=== PATIENT | female | born 1960 | race Caucasian/White ===

== ENCOUNTER 2020-09-28 13:57 | Outpatient (CLI) | payer OTHER | END 2020-09-28 14:13 | disposition home or self-care (01) | LOC: RAD 13:57 → MRI 14:15 | PROVIDERS: ATTEND Orthopaedic Surgery | DX: S83.242A Other tear of medial meniscus, current injury, left knee, initial encounter (principal); M25.562 Pain in left knee | CPT/HCPCS: 73721 ==

== ENCOUNTER 2020-12-20 13:08 | Outpatient (CLI) | payer OTHER ==
[2021-01-09] MEDS ORDERED: CARAFATE1 GM PO (14:19)
[2021-01-09] MEDS ORDERED: CHILDREN'S ASPI81 MG PO (14:19)
[2021-01-09] MEDS ORDERED: ELIQUIS2.5 MG PO (14:19)
== END 2020-12-20 13:10 | disposition home or self-care (01) ==
LOC: NUCLEAR 13:08
PROVIDERS: ATTEND Orthopaedic Surgery
DX: M81.0 Age-related osteoporosis without current pathological fracture (principal)

== ENCOUNTER 2020-12-20 13:51 | Outpatient (CLI) | payer OTHER ==
[2021-01-09] MEDS ORDERED: CHILDREN'S ASPI81 MG PO (14:19)
[2021-01-09] MEDS ORDERED: ELIQUIS2.5 MG PO (14:19)
[2021-01-09] MEDS ORDERED: CARAFATE1 GM PO (14:19)
== END 2020-12-20 15:34 | disposition home or self-care (01) ==
LOC: OFIC 805 13:51
PROVIDERS: ATTEND Otolaryngology Otology & Neurotology
DX: J35.01 Chronic tonsillitis (principal); J03.80 Acute tonsillitis due to other specified organisms

== ENCOUNTER 2020-12-21 07:54 | Outpatient (CLI) | payer OTHER ==
[2021-01-09] MEDS ORDERED: CHILDREN'S ASPI81 MG PO (14:19)
[2021-01-09] MEDS ORDERED: CARAFATE1 GM PO (14:19)
[2021-01-09] MEDS ORDERED: ELIQUIS2.5 MG PO (14:19)
== END 2020-12-21 08:09 | disposition home or self-care (01) ==
LOC: RAD 07:54
PROVIDERS: ATTEND Internal Medicine Cardiovascular Disease
DX: M25.561 Pain in right knee (principal); M25.562 Pain in left knee; I26.99 Other pulmonary embolism without acute cor pulmonale; D68.61 Antiphospholipid syndrome
CPT/HCPCS: 71275

== ENCOUNTER 2020-12-27 07:27 | Outpatient (CLI) | payer OTHER ==
[2021-01-09] MEDS ORDERED: ELIQUIS2.5 MG PO (14:19)
[2021-01-09] MEDS ORDERED: CHILDREN'S ASPI81 MG PO (14:19)
[2021-01-09] MEDS ORDERED: CARAFATE1 GM PO (14:19)
== END 2020-12-27 07:28 | disposition home or self-care (01) ==
LOC: NUCLEAR 07:27
PROVIDERS: ATTEND Internal Medicine Cardiovascular Disease
DX: I26.99 Other pulmonary embolism without acute cor pulmonale (principal); I82.403 Acute embolism and thrombosis of unspecified deep veins of lower extremity, bilateral; D68.61 Antiphospholipid syndrome

== ENCOUNTER 2020-12-27 09:06 | Outpatient (CLI) | payer OTHER ==
[2021-01-09] MEDS ORDERED: ELIQUIS2.5 MG PO (14:19)
[2021-01-09] MEDS ORDERED: CARAFATE1 GM PO (14:19)
[2021-01-09] MEDS ORDERED: CHILDREN'S ASPI81 MG PO (14:19)
== END 2020-12-27 09:42 | disposition home or self-care (01) ==
LOC: RAD 09:06
PROVIDERS: ATTEND Obstetrics & Gynecology Gynecology
DX: R07.9 Chest pain, unspecified (principal)

== ENCOUNTER 2021-01-02 15:20 | Outpatient (CLI) | payer OTHER ==
[2021-01-09] MEDS ORDERED: CHILDREN'S ASPI81 MG PO (14:19)
[2021-01-09] MEDS ORDERED: CARAFATE1 GM PO (14:19)
[2021-01-09] MEDS ORDERED: ELIQUIS2.5 MG PO (14:19)
== END 2021-01-02 15:30 | disposition home or self-care (01) ==
LOC: RAD 15:20
PROVIDERS: ATTEND Orthopaedic Surgery
DX: M54.5 Low back pain (principal)

== ENCOUNTER → 2021-01-09 08:00 | Outpatient (CLI) | payer OTHER ==
[~2021-01-09 08:00] MED LIST: CARAFATE1 GM PO; CHILDREN'S ASPI81 MG PO; ELIQUIS2.5 MG PO
== END | disposition home or self-care (01) ==
LOC: LAB 08:00 → ADM 11:00 → CIR.AMB 11:00 → EDSTATUS 01-16 11:00
PROVIDERS: ATTEND Obstetrics & Gynecology Gynecology
DX: N39.3 Stress incontinence (female) (male) (principal); Z20.822 Contact with and (suspected) exposure to COVID-19; Z20.828 Contact with and (suspected) exposure to other viral communicable diseases

== ENCOUNTER 2021-01-11 14:06 | Outpatient (CLI) | payer OTHER | END 2021-01-11 14:15 | disposition home or self-care (01) | LOC: RAD 14:06 | PROVIDERS: ATTEND Internal Medicine Rheumatology | DX: M16.0 Bilateral primary osteoarthritis of hip (principal) ==

== ENCOUNTER → 2021-01-31 | Outpatient (CLI) | payer OTHER | END | disposition home or self-care (01) | LOC: RAD 14:33 | PROVIDERS: ATTEND Orthopaedic Surgery Orthopaedic Surgery of the Spine | DX: M54.5 Low back pain (principal) ==

== ENCOUNTER 2021-02-28 10:11 | Outpatient (CLI) | payer OTHER | END 2021-02-28 10:31 | disposition home or self-care (01) | LOC: NUCLEAR 10:11 | PROVIDERS: ATTEND Neuromusculoskeletal Medicine, Sports Medicine | DX: I73.9 Peripheral vascular disease, unspecified (principal) ==

== ENCOUNTER 2021-10-11 13:23 | Outpatient (CLI) | payer OTHER | END 2021-10-11 13:24 | disposition home or self-care (01) | LOC: NUCLEAR 13:23 | PROVIDERS: ATTEND Internal Medicine Hematology & Oncology | DX: D45 Polycythemia vera (principal) ==

== ENCOUNTER 2021-11-14 11:55 | Outpatient (CLI) | payer OTHER | END 2021-11-14 12:07 | disposition home or self-care (01) | LOC: RAD 11:55 | PROVIDERS: ATTEND Orthopaedic Surgery | DX: M25.511 Pain in right shoulder (principal) ==

== ENCOUNTER 2021-11-28 10:04 | Outpatient (CLI) | payer OTHER | END 2021-11-28 10:17 | disposition home or self-care (01) | LOC: SONOGRAMA 10:04 | PROVIDERS: ATTEND Orthopaedic Surgery | DX: M25.511 Pain in right shoulder (principal) ==

== ENCOUNTER 2022-01-15 14:22 | Outpatient (CLI) | payer OTHER | END 2022-01-15 14:35 | disposition home or self-care (01) | LOC: RAD 14:22 | PROVIDERS: ATTEND Obstetrics & Gynecology Gynecology | DX: R07.9 Chest pain, unspecified (principal) ==

== ENCOUNTER → 2022-01-15 14:25 | Outpatient (CLI) | payer OTHER | END | disposition home or self-care (01) | LOC: LAB 14:25 → EKG 14:25 | PROVIDERS: ATTEND Obstetrics & Gynecology Gynecology | DX: I10 Essential (primary) hypertension (principal) ==

== ENCOUNTER 2022-01-31 09:59 | Outpatient (CLI) | payer OTHER | END 2022-01-31 10:29 | disposition home or self-care (01) | LOC: MRI 09:59 | PROVIDERS: ATTEND Internal Medicine Hematology & Oncology | DX: F03.90 Unspecified dementia, unspecified severity, without behavioral disturbance, psychotic disturbance, mood disturbance, and anxiety (principal) | CPT/HCPCS: 70551 ==

== ENCOUNTER 2022-02-05 06:15 | Day surgery (SDC) | payer OTHER ==
[~2022-02-05] VITALS: Ht 152.4 cm; Wt 65.8 kg
[2022-02-05] MEDS ORDERED: ULTRACET PO (10:41)
[2022-02-05] MEDS ORDERED: MACROBID 100 M100 MG PO (10:41)
== END 2022-02-05 12:25 | disposition home or self-care (01) ==
LOC: CIR.AMB 06:15
PROVIDERS: ATTEND Obstetrics & Gynecology Gynecology
DX: N39.3 Stress incontinence (female) (male) (principal); Z86.711 Personal history of pulmonary embolism; Z87.891 Personal history of nicotine dependence; Z79.01 Long term (current) use of anticoagulants; Z20.822 Contact with and (suspected) exposure to COVID-19

== ENCOUNTER 2022-02-18 13:44 | Outpatient (CLI) | payer OTHER ==
[~2022-02-18 13:44] MED LIST changes: +MACROBID 100 M100 MG PO; +ULTRACET PO
== END 2022-02-18 15:05 | disposition home or self-care (01) ==
LOC: RAD 13:44
PROVIDERS: ATTEND Internal Medicine Hematology & Oncology
DX: J20.0 Acute bronchitis due to Mycoplasma pneumoniae (principal)

== ENCOUNTER 2022-05-30 15:18 | Outpatient (CLI) | payer OTHER | END 2022-05-30 15:27 | disposition home or self-care (01) | LOC: RAD 15:18 | PROVIDERS: ATTEND Internal Medicine Pulmonary Disease | DX: R06.02 Shortness of breath (principal); J45.31 Mild persistent asthma with (acute) exacerbation; Z86.718 Personal history of other venous thrombosis and embolism ==

== ENCOUNTER 2023-01-23 07:45 | Outpatient (CLI) | payer OTHER | END 2023-01-23 08:03 | disposition home or self-care (01) | LOC: RAD 07:45 | PROVIDERS: ATTEND Radiology Nuclear Radiology | DX: R10.9 Unspecified abdominal pain (principal); M51.27 Other intervertebral disc displacement, lumbosacral region; M50.10 Cervical disc disorder with radiculopathy, unspecified cervical region | CPT/HCPCS: 72141; 72148 ==

== ENCOUNTER 2023-02-17 11:26 | Outpatient (CLI) | payer OTHER | END 2023-02-17 11:34 | disposition home or self-care (01) | LOC: RAD 11:26 | PROVIDERS: ATTEND Orthopaedic Surgery | DX: M25.572 Pain in left ankle and joints of left foot (principal) ==

== ENCOUNTER 2023-05-26 14:00 | Outpatient (CLI) | payer OTHER | END 2023-05-26 14:35 | disposition home or self-care (01) | LOC: RAD 14:00 | PROVIDERS: ATTEND Radiology Nuclear Radiology | DX: M23.200 Derangement of unspecified lateral meniscus due to old tear or injury, right knee (principal); M23.201 Derangement of unspecified lateral meniscus due to old tear or injury, left knee ==

== ENCOUNTER 2023-11-05 13:23 | Outpatient (CLI) | payer OTHER | END 2023-11-05 13:35 | disposition home or self-care (01) | LOC: RAD 13:23 | PROVIDERS: ATTEND Internal Medicine Rheumatology | DX: M19.90 Unspecified osteoarthritis, unspecified site (principal) ==

== ENCOUNTER 2023-11-21 13:31 | Outpatient (CLI) | payer OTHER | END 2023-11-21 13:32 | disposition home or self-care (01) | LOC: NUCLEAR 13:31 | DX: M81.0 Age-related osteoporosis without current pathological fracture (principal) ==

== ENCOUNTER → 2025-01-24 17:10 | Outpatient (CLI) | payer OTHER ==
[2025-01-24 17:55] LABS: COVID-19 AG NEGATIVE (NEGATIVE)
[2025-01-24 17:56] LABS: INFLUENZA A AG NEGATIVE (NEGATIVE)
[2025-01-24 18:27] LABS: MYCOPLASMA PNEUMONIAE IGM NON REACTIVE (NO REACTIVE)
== END | disposition home or self-care (01) ==
LOC: LAB 17:10
PROVIDERS: ATTEND Internal Medicine Hematology & Oncology
DX: Z20.828 Contact with and (suspected) exposure to other viral communicable diseases (principal); U07.1 COVID-19; Z87.09 Personal history of other diseases of the respiratory system; J20.0 Acute bronchitis due to Mycoplasma pneumoniae; J11.1 Influenza due to unidentified influenza virus with other respiratory manifestations

== ENCOUNTER 2025-01-25 10:11 | Inpatient (IN) | payer OTHER ==
[2025-01-25 11:46] LABS: ERYTHROCYTE SEDIMENTATION RATE 23 mm/hr (0-30)
[2025-01-25 11:49] LABS: HEMATOCRIT 43.8 % (34.1-44.9); HEMOGLOBIN 14.5 g/dL (11.2-15.7); MEAN CORPUSCULAR HEMOGLOBIN 30.3 pg (25.6-32.2); RED BLOOD COUNT 4.79 M/uL (3.93-5.22)
[2025-01-25 11:51] LABS: EOS % 2.2 % (0.7-7.0); LYMPH % 22.3 % (19.3-53.1); MONO % 7.8 % (4.7-12.5); PLATELET COUNT 261 K/uL (163-369); RED CELL DISTRIBUTION WIDTH 12.8 % (11.6-14.4)
[2025-01-25 11:52] LABS: BASO % 0.4 % (0.1-1.2)
[2025-01-25 11:53] LABS: EOS # 0.22 (0.04-0.54); LYMPH # 2.18 (1.18-3.74); MONO # 0.76 (0.24-0.82); NEUT # 6.56 (1.56-6.13)
[2025-01-25 12:06] LABS: INR 0.96; PROTHROMBIN TIME 10.5 SECONDS (9.0-11.5)
[2025-01-25] MEDS ORDERED: CIPROFLOXACIN IN 5 % DEXTROSE 200 ML IV SCH (12:38)
[2025-01-25] MEDS ORDERED: KETOROLAC TROMETHAMINE 30 MG VIAL IV PRN (12:45)
[2025-01-25] MEDS ORDERED: RINGERS SOLUTION,LACTATED 1,000 ML IV SCH (12:45)
[2025-01-25 12:46] LABS: ALBUMIN 3.7 gm/dL (3.4-5.0); BILIRUBIN TOTAL 0.64 mg/dL (0.3-1.2); CALCIUM 9.3 mg/dL (8.5-10.1); CREATININE SERUM 0.7 mg/dL (0.55-1.02); GFR 84.51; GLOBULINA 3.6 G/DL (2.4-3.5); POTASSIUM 5.1 mEq/L (3.5-5.1); TOTAL PROTEIN 7.3 gm/dL (6.4-8.2)
[2025-01-25 12:47] LABS: C-REACTIVE PROTEIN 12.5 MG/DL (0.00-0.29)
[2025-01-25] MEDS ORDERED: HYOSCYAMINE SULFATE 0.125 MG TAB.SUBL PO SCH (13:00)
[2025-01-25 16:00] VITALS: BP 112/61; O2SAT 99
[2025-01-25 16:48] LABS: PH,URINE 5.5 (5.0-8.0); URINE APPEARANCE Clear; URINE BILIRRUBIN Negative (NEGATIVE); URINE BLOOD Negative; URINE COLOR Yellow; URINE GLUCOSE Negative (NEGATIVE); URINE KETONE Trace (NEGATIVE); URINE LEUKOCYTE Trace; URINE NITRATE Negative; URINE PROTEIN Negative (NEGATIVE); URINE UROBILINOGEN 0.2 E.U./dl
[2025-01-25 16:52] LABS: URINE BACTERIA 46.5 uL (0.0-1933); URINE RBC 8.6 uL (0.0-20.8); URINE WBC 18.8 uL (0.0-23.2)
[2025-01-25 16:59] LABS: URINE CAST 1.32 uL (0.0-1.40)
[2025-01-25] MEDS ORDERED: METRONIDAZOLE/SODIUM CHLORIDE 100 ML IV SCH (17:00)
[2025-01-25] MEDS ORDERED: DIATRIZOATE MEGLUMINE, SODIUM 30 ML BOTTLE PO NR (17:00)
[2025-01-26 01:15] VITALS: BP 121/62; O2SAT 100
[2025-01-26] MEDS ORDERED: CHOLESTYRAMINE/ASPARTAME LIGHT 4 G/PKT PACKET PO SCH (13:00)
[2025-01-26 16:00] VITALS: BP 93/58; O2SAT 96
[2025-01-27 01:34] VITALS: BP 93/58; O2SAT 99
[2025-01-27 08:00] VITALS: BP 110/73; BP 164/72; O2SAT 95; O2SAT 96
[2025-01-27 12:58] LABS: FECAL LEUKOCYTES POSITIVE (NEGATIVE)
[2025-01-27] MEDS ORDERED: FAMOTIDINE/PF 20 MG/2 ML VIAL IV STA (13:10)
[2025-01-27 16:00] VITALS: BP 131/78; O2SAT 97
[2025-01-27] MEDS ORDERED: METROnidazole 500 MG TABLET PO SCH (17:00)
[2025-01-27] MEDS ORDERED: ONDANSETRON HCL 2 MG/ML VIAL IV SCH (17:00)
[2025-01-27] MEDS ORDERED: FAMOTIDINE/PF 20 MG/2 ML VIAL IV SCH (21:00)
[2025-01-28] VITALS: BP 93/54; O2SAT 96
[2025-01-28] MEDS ORDERED: MEPERIDINE HCL 25 MG/ML AMPUL IV PRN (03:30)
[2025-01-28 08:00] VITALS: BP 120/77; O2SAT 98
[2025-01-28 16:31] VITALS: BP 108/74; O2SAT 99
[2025-01-28] MEDS ORDERED: HYOSCYAMINE0.125 M1 SL (18:02)
[2025-01-28] MEDS ORDERED: FLAGYL375 MG PO (18:03)
[2025-01-28] MEDS ORDERED: CIPRO500 MG PO (18:03)
== END 2025-01-28 19:00 | disposition home or self-care (01) | DRG 392 ==
LOC: SURH 10:11 → SEC-K 10:12 → MEDJ 10:31 → SURH 10:36
PROVIDERS: Internal Medicine Infectious Disease; ADMIT Internal Medicine Hematology & Oncology; ATTEND Internal Medicine Hematology & Oncology
PROC: BW21YZZ Computerized Tomography (CT Scan) of Abdomen and Pelvis using Other Contrast (ICD-10-PCS; principal; 2025-01-25)
DX: K52.9 Noninfective gastroenteritis and colitis, unspecified (principal); K57.92 Diverticulitis of intestine, part unspecified, without perforation or abscess without bleeding

== ENCOUNTER 2025-02-10 10:41 | Outpatient (CLI) | payer OTHER ==
[~2025-02-10 10:41] MED LIST changes: +CIPRO500 MG PO; +FLAGYL375 MG PO; +HYOSCYAMINE0.125 M1 SL
== END 2025-02-10 10:47 | disposition home or self-care (01) ==
LOC: SONOGRAMA 10:41
PROVIDERS: ATTEND Radiology Nuclear Radiology
DX: M23.200 Derangement of unspecified lateral meniscus due to old tear or injury, right knee (principal); M23.001 Cystic meniscus, unspecified lateral meniscus, left knee; M25.541 Pain in joints of right hand; M25.542 Pain in joints of left hand; M25.531 Pain in right wrist; M25.532 Pain in left wrist

== ENCOUNTER 2025-05-19 14:30 | Outpatient (CLI) | payer OTHER | END 2025-05-19 14:43 | disposition home or self-care (01) | LOC: SONOGRAMA 14:30 | PROVIDERS: ATTEND Radiology Nuclear Radiology | DX: M25.531 Pain in right wrist (principal); M25.532 Pain in left wrist ==

== ENCOUNTER 2025-06-16 12:34 | Inpatient (IN) | payer OTHER ==
[~2025-06-16] VITALS: Ht 165.1 cm; Wt 65.8 kg
--- NOTE | 2025-06-16 12:43 | NUR ---
SE RECIBE PTE ALERTA Y ORIENTADA X3 EN AMBULANCIA. REFIERE QUE DR PERES LE REALIZO COLONOSCOPIA EL DELICIA PASADO Y LUEGO DE ESTO PRESENTA [place] RECTAL. PTE DE DR DM CORTEZ. SE MIDE SV Y SE UBICA
[2025-06-16] MEDS ORDERED: 0.9 % SODIUM CHLORIDE 1,000 ML IV SCH (13:00)
[2025-06-16] MEDS ORDERED: MORPHINE SULFATE 2 MG/ML SYRINGE IV ONE (13:00)
[2025-06-16] MEDS ORDERED: FAMOtidine 10 MG/ML (4ML VIAL) IV PUSH ONE (13:00)
[2025-06-16] MEDS ORDERED: ONDANSETRON HCL 4 MG in 0.9 % SODIUM CHLORIDE 50 ML IV ONE (13:00)
[2025-06-16] MEDS ORDERED: ONDANSETRON HCL 2 MG/ML VIAL ONE (13:46)
[2025-06-16] MEDS ORDERED: FAMOTIDINE/PF 20 MG/2 ML VIAL ONE (13:47)
--- NOTE | 2025-06-16 14:23 | NUR ---
SE ORIENTA PTE SOBRE TX A SEGUIR, LA MISMA REFIERE ENTENDER. SE SAGAR MUESTRA DE LAB BAJO MEDIDAS ASEPTICAS
[2025-06-16 14:40] LABS: BASO % 0.2 % (0.1-1.2); EOS # 0.18 (0.04-0.54); EOS % 1.0 % (0.7-7.0); LYMPH # 2.42 (1.18-3.74); LYMPH % 14.0 % (19.3-53.1); MEAN PLATELET VOLUME 11.00 fl (9.4-12.4); MONO # 1.28 (0.24-0.82); MONO % 7.4 % (4.7-12.5); NEUT # 13.35 (1.56-6.13); NEUT % 77.0 % (34.0-71.1); RED CELL DISTRIBUTION WIDTH 13.0 % (11.6-14.4)
[2025-06-16] MEDS ORDERED: CIPROFLOXACIN IN 5 % DEXTROSE 200 ML IV ONE (15:00)
[2025-06-16 15:07] LABS: ALT/SGPT 19.0 U/L (12-78); AST/SGOT 16.0 U/L (15-37); BILIRUBIN TOTAL 0.39 mg/dL (0.3-1.2); BUN CREA RATIO 16.0 (7.0-25.0); CREATININE SERUM 0.67 mg/dL (0.55-1.02); GFR 88.89; GLOBULINA 4.0 G/DL (2.4-3.5); GLUCOSE FASTING 97.0 mg/dL (65-100); OSMOLALITY SERUM 281.0 MOSM/KG (275-295)
[2025-06-16 15:11] LABS: INR 0.98
[2025-06-16] MEDS ORDERED: METRONIDAZOLE/SODIUM CHLORIDE 500 MG/100 ML PIGGYBACK IV ONE (17:40)
[2025-06-16] MEDS ORDERED: CIPROFLOXACIN IN 5 % DEXTROSE 400 MG/200 ML PIGGYBAG IV ONE (17:40)
[2025-06-16] MEDS ORDERED: PANTOPRAZOLE SODIUM 40 MG in 0.9 % SODIUM CHLORIDE 8 ML IV PUSH SCH (19:04)
[2025-06-16] MEDS ORDERED: ONDANSETRON HCL 4 MG in 0.9 % SODIUM CHLORIDE 50 ML IV PRN (19:15)
[2025-06-16] MEDS ORDERED: ACETAMINOPHEN 325 MG TABLET PO PRN (19:15)
[2025-06-16] MEDS ORDERED: MORPHINE SULFATE 2 MG/ML SYRINGE IV PRN (19:15)
[2025-06-16 20:30] VITALS: BP 99/62; O2SAT 98
[2025-06-16 20:37] LABS: URINE APPEARANCE Clear; URINE BILIRRUBIN Negative (NEGATIVE); URINE BLOOD Negative; URINE COLOR Yellow; URINE GLUCOSE Negative (NEGATIVE); URINE KETONE Negative (NEGATIVE); URINE LEUKOCYTE Negative; URINE NITRATE Negative; URINE PROTEIN Negative (NEGATIVE); URINE UROBILINOGEN 0.2 E.U./dl
[2025-06-16 20:42] LABS: URINE RBC 3.3 uL (0.0-20.8); URINE WBC 3.2 uL (0.0-23.2)
[2025-06-16 20:44] LABS: URINE BACTERIA 2.3 uL (0.0-1933); URINE CAST 0.00 uL (0.0-1.40); URINE EPITHELIAL CELLS 1.3 uL (0.0-38.8)
[2025-06-16] MEDS ORDERED: CIPROFLOXACIN IN 5 % DEXTROSE 200 ML IV SCH (21:00)
[2025-06-17 03:40] VITALS: BP 98/63; O2SAT 98
[2025-06-17 06:17] LABS: BASO % 0.4 % (0.1-1.2); EOS # 0.41 (0.04-0.54); EOS % 3.7 % (0.7-7.0); LYMPH # 2.33 (1.18-3.74); LYMPH % 21.1 % (19.3-53.1); MEAN PLATELET VOLUME 12.10 fl (9.4-12.4); MONO # 0.86 (0.24-0.82); MONO % 7.8 % (4.7-12.5); NEUT # 7.36 (1.56-6.13); NEUT % 66.7 % (34.0-71.1); RED CELL DISTRIBUTION WIDTH 12.8 % (11.6-14.4)
[2025-06-17 07:06] LABS: ALT/SGPT 18.0 U/L (12-78); AST/SGOT 22.0 U/L (15-37); BILIRUBIN TOTAL 0.74 mg/dL (0.3-1.2); BUN CREA RATIO 15.0 (7.0-25.0); CREATININE SERUM 0.48 mg/dL (0.55-1.02); GFR 130.62; GLOBULINA 3.1 G/DL (2.4-3.5); GLUCOSE FASTING 87.0 mg/dL (65-100); OSMOLALITY SERUM 284.0 MOSM/KG (275-295)
[2025-06-17 08:43] VITALS: BP 98/63; O2SAT 97
[2025-06-17] MEDS ORDERED: PANTOPRAZOLE SODIUM 40 MG in 0.9 % SODIUM CHLORIDE 8 ML IV PUSH SCH (09:00)
[2025-06-17 16:00] VITALS: BP 102/68; O2SAT 97
[2025-06-17] MEDS ORDERED: ENOXAPARIN SODIUM 40 MG/0.4 ML SYRINGE SUBCUTANEO SCH (17:13)
[2025-06-18 01:25] VITALS: BP 119/83; O2SAT 100
[2025-06-18 08:00] VITALS: BP 105/72; O2SAT 97
[2025-06-18 08:11] LABS: BASO % 0.6 % (0.1-1.2); EOS # 0.57 (0.04-0.54); EOS % 8.9 % (0.7-7.0); LYMPH # 2.01 (1.18-3.74); LYMPH % 31.3 % (19.3-53.1); MEAN PLATELET VOLUME 11.60 fl (9.4-12.4); MONO # 0.58 (0.24-0.82); MONO % 9.0 % (4.7-12.5); NEUT # 3.21 (1.56-6.13); NEUT % 49.9 % (34.0-71.1); RED CELL DISTRIBUTION WIDTH 12.7 % (11.6-14.4)
[2025-06-18 16:00] VITALS: BP 115/77; O2SAT 97
[2025-06-19 00:35] VITALS: BP 104/68; O2SAT 98
[2025-06-19 08:43] VITALS: BP 104/64; O2SAT 96
[2025-06-19] MEDS ORDERED: DIATRIZOATE MEGLUMINE, SODIUM 30 ML BOTTLE PO NR (11:30)
[2025-06-19 16:53] VITALS: BP 105/69; O2SAT 98
[2025-06-19] MEDS ORDERED: ONDANSETRON HCL 2 MG/ML VIAL IV SCH (17:00)
[2025-06-20 01:19] VITALS: BP 118/72; O2SAT 98
[2025-06-20] MEDS ORDERED: DIATRIZOATE MEGLUMINE, SODIUM 30 ML BOTTLE PO ONE (06:00)
[2025-06-20 08:00] VITALS: BP 132/84; O2SAT 97
== END 2025-06-20 12:59 | disposition home or self-care (01) | DRG 392 ==
LOC: ER 12:34 → SURH 19:29
PROVIDERS: General Practice; ADMIT Internal Medicine; ATTEND Internal Medicine
PROC: BW21ZZZ Computerized Tomography (CT Scan) of Abdomen and Pelvis (ICD-10-PCS; principal; 2025-06-16)
PROC: BW21YZZ Computerized Tomography (CT Scan) of Abdomen and Pelvis using Other Contrast (ICD-10-PCS; 2025-06-20)
DX: K57.90 Diverticulosis of intestine, part unspecified, without perforation or abscess without bleeding (principal); K62.5 Hemorrhage of anus and rectum; K52.9 Noninfective gastroenteritis and colitis, unspecified

== ENCOUNTER 2025-07-18 12:14 | Outpatient (CLI) | payer OTHER | END 2025-07-18 12:24 | disposition home or self-care (01) | LOC: SONOGRAMA 12:14 | DX: M25.531 Pain in right wrist (principal); M25.532 Pain in left wrist ==

== ENCOUNTER 2025-08-02 10:42 | Outpatient (CLI) | payer OTHER | END 2025-08-02 11:02 | disposition home or self-care (01) | LOC: MRI 10:42 | PROVIDERS: ATTEND Internal Medicine Hematology & Oncology | DX: M54.42 Lumbago with sciatica, left side (principal); G57.00 Lesion of sciatic nerve, unspecified lower limb; M54.50 Low back pain, unspecified; M25.562 Pain in left knee | CPT/HCPCS: 73721 ==